=== PATIENT | female | born 1945 | race Caucasian/White ===

== ENCOUNTER 2020-12-27 13:47 | Emergency (ER) | payer MEDICARE, MEDICAID, SELFPAY ==
--- NOTE | ~2020-12-27 | CT_ITS ---
EXAMINATION: CT HEAD WITHOUT CONTRAST CLINICAL INFORMATION: Aggressive. Hallucinations. History of traumatic brain injury. COMPARISON: None. TECHNIQUE: Contiguous axial imaging was performed from the skull base to vertex without intravenous contrast. This CT examination was performed using dose optimization techniques as appropriate, variously including the following: * Automated exposure control * Adjustment of mA and/or kV according to patient size (this includes techniques or standardized protocols for targeted exams where dose is matched to indication/reason for exam; i.e. extremities or head) Use of iterative reconstruction technique DLP: 700 mGy-cm. FINDINGS: There is no evidence of acute intracranial hemorrhage or territorial infarction. No abnormal mass effect or midline shift is seen. [place] to white matter differentiation is well preserved. No extra-axial fluid collections are identified. No hydrocephalus. Proportional prominence of the ventricles and sulcal spaces is consistent with mild volume loss. Patchy periventricular and deep white matter hypoattenuation is consistent with mild small vessel ischemic changes. The osseous structures and soft tissues are normal. The mastoid air cells and visualized portions of the paranasal sinuses are well aerated. CT/CT head/brain wo con IMPRESSION: No acute intracranial pathology. Chronic volume loss with small vessel ischemic changes.
[2020-12-27 14:04] VITALS: BP 125/68; BP 125/70; PULSE 80; PULSE 92; RESP 18; TEMP 37.7; O2SAT 98; O2SAT 99; BMI 25.7
--- NOTE | 2020-12-27 14:37 | ECG_ITS ---
Test Reason : MED CLEARANCE Blood Pressure : / mmHG Vent. Rate : 078 BPM Atrial Rate : 078 BPM P-R Int : 146 ms QRS Dur : 098 ms QT Int : 362 ms P-R-T Axes : 072 067 026 degrees QTc Int : 412 ms Normal sinus rhythm Normal ECG No previous ECGs available Referred By: Juan Manuel Guerin Electronically Signed By:KORI MORALES
--- NOTE | 2020-12-27 14:43 | ED.GENADULT ---
HPI - General Adult General Chief complaint: Altered Mental Status <BHARAT Ortiz - Last Filed: 12/27/20 18:09> Stated complaint: behavioral <BHARAT Ortiz - Last Filed: 12/27/20 18:09> Time Seen by Provider: 12/27/20 14:21 <BHARAT Ortiz - Last Filed: 12/27/20 18:09> Source: patient <BHARAT Ortiz - Last Filed: 12/27/20 18:09> Mode of arrival: ambulatory <BHARAT Ortiz - Last Filed: 12/27/20 18:09> Limitations: no limitations <BHARAT Ortiz Last Filed: 12/27/20 18:09> History of Present Illness HPI narrative: Patient brought to the ED for increased aggression for 1 week as from as per shelter. Nurse states that patient has been increasingly aggressive and having violent hallucinations which causes her to act out in aggression. Nurse states patient admitted to seeing people in her room multiple times. At baseline patient has hallucinations but they are usually pleasant. She also states at baseline patient is alert oriented x3, but can also have mental status that wax and wanes. Patient herself admits to seeing somebody in her room last nigth but denies any violent acts. Patient presently is alert oriented x3. Patient knows her name, birthday, address, year, place, and the president. Patient presently in the ER is pleasant. Patient has history of bipolar, dementia, and traumatic brain injury <BHARAT Ortiz - Last Filed: 12/27/20 18:09> Related Data Home medications: Home Medications Medication Instructions Recorded Confirmed cholecalciferol (vitamin D3) 50 50 mcg PO DAILY 12/27/20 12/27/20 mcg (2,000 unit) tablet (Vitamin D3) cyanocobalamin (vitamin B-12) 500 500 mcg PO DAILY 12/27/20 12/27/20 mcg tablet (Vitamin B-12) estradiol 2 g VAGINAL 2XW 12/27/20 12/27/20 levothyroxine 50 mcg tablet 1 tab PO DAILY 12/27/20 12/27/20 lithium carbonate 450 mg 1 tab PO BEDTIME 12/27/20 12/27/20 tablet,extended release metoprolol succinate 25 mg 1 tab PO DAILY 12/27/20 12/27/20 tablet,extended release 24 hr mirtazapine 15 mg tablet 0.5 tab PO DAILY 12/27/20 12/27/20 quetiapine 300 mg tablet 1 tab PO BEDTIME 12/27/20 12/27/20 quetiapine 50 mg tablet 1 tab PO BEDTIME 12/27/20 12/27/20 <BHARAT Ortiz Last Filed: 12/27/20 18:09> Allergies/adverse reactions: Allergies Allergy/AdvReac Type Severity Reaction Status Date / Time acetaminophen [From Percocet] Allergy Unknown Verified 12/27/20 14:31 aripiprazole [From Abilify] Allergy Unknown Verified 12/27/20 14:32 aspirin Allergy Unknown Verified 12/27/20 14:31 diphenhydramine Allergy Unknown Verified 12/27/20 14:32 [From Benadryl] lamotrigine Allergy Unknown Verified 12/27/20 14:31 meperidine [From Demerol] Allergy Unknown Verified 12/27/20 14:32 oxycodone Allergy Unknown Verified 12/27/20 14:31 prednisone Allergy Unknown Verified 12/27/20 14:31 Sulfa (Sulfonamide Allergy Unknown Verified 12/27/20 14:31 Antibiotics) <BHARAT Ortiz Last Filed: 12/27/20 18:09> Review of Systems Review of Systems: Yes all other systems are reviewed and are negative <BHARAT Ortiz Last Filed: 12/27/20 18:09> Constitutional: Constitutional: Reports as per HPI and Reports no additional constitutional complaints <BHARAT Ortiz Last Filed: 12/27/20 18:09> Eyes: Eyes: Reports as per HPI and Reports no additional eye complaints <BHARAT Ortiz Last Filed: 12/27/20 18:09> ENT: Reports system reviewed and no additional complaints, except as documented and Reports as per HPI <BHARAT Ortiz Last Filed: 12/27/20 18:09> Cardiovascular: Cardiovascular: Reports as per HPI and Reports no additional cardiovascular complaints <BHARAT Ortiz Last Filed: 12/27/20 18:09> Respiratory: Respiratory: Reports as per HPI and Reports no additional respiratory complaints <BHARAT Ortiz Last Filed: 12/27/20 18:09> Gastrointestinal: Gastrointestinal: Reports as per HPI and Reports no additional gastrointestinal complaints <BHARAT Ortiz - Last Filed: 12/27/20 18:09> Genitourinary: Genitourinary: Reports no additional female genitourinary complaints and Reports as per HPI <BHARAT Oritz - Last Filed: 12/27/20 18:09> Musculoskeletal: Musculoskeletal: Reports no additional musculoskeletal complaints and Reports as per HPI <BHARAT Ortiz - Last Filed: 12/27/20 18:09> Neurologic: Reports system reviewed and no additional complaints, except as documented and Reports as per HPI <BHARAT Ortiz - Last Filed: 12/27/20 18:09> Psychiatric: Psychiatric: Reports no additional psychiatric complaints and Reports as per HPI <BHARAT Ortiz - Last Filed: 12/27/20 18:09> Comments: Aggression. Hallucination <BHARAT Ortiz - Last Filed: 12/27/20 18:09> [facility] Past Medical History Medical History: Medical History (Updated 12/27/20 @ 18:04 by BHARAT Ortiz) Bipolar 1 disorder Brain concussion Head injury Hypothyroid Melanoma Sciatica <BHARAT Ortiz - Last Filed: 12/27/20 18:09> Social History Social History: Social History Alcohol intake: unknown Patient Tobacco Use Status: Never used Tobacco Use of substances other than those prescribed or required for medical reasons: No Advance Directives: No <BHARAT Ortiz - Last Filed: 12/27/20 18:09> Physical Exam Vital Signs: Vital Signs: Last Vital Signs Temp 98.2 F 12/27/20 23:58 Pulse 76 12/27/20 23:58 Resp 16 12/27/20 23:58 BP 146/67 H 12/27/20 23:58 Pulse Ox 97 12/27/20 23:58 Body Mass Index 25.7 <BHARAT Ortiz - Last Filed: 12/27/20 18:09> Vital Signs: Last Vital Signs Temp 98.2 F 12/27/20 23:58 Pulse 76 12/27/20 23:58 Resp 16 12/27/20 23:58 BP 146/67 H 12/27/20 23:58 Pulse Ox 97 12/27/20 23:58 Body Mass Index 25.7 <Yashira Jackson [facility] Last Filed: 12/28/20 08:57> Const: General: cooperative, healthy appearing, comfortable, no acute distress, well developed, alert and awake <BHARAT Ortiz Last Filed: 12/27/20 18:09> Orientation/consciousness: patient oriented x3 <BHARAT Ortiz Last Filed: 12/27/20 18:09> HENMT: Head: Yes normal to inspection, Yes No palpable skull fracture present, Yes normocephalic and Yes atraumatic <BHARAT Ortiz Last Filed: 12/27/20 18:09> Eyes: General: appearance normal, both eyes and all related structures <BHARAT Ortiz Last Filed: 12/27/20 18:09> Neck: Neck: Yes normal visual inspection, Yes full ROM, Yes no lymphadenopathy, Yes no meningeal signs, Yes trachea midline, Yes supple and No tender <BHARAT Ortiz Last Filed: 12/27/20 18:09> Chest: Chest palpation & inspection: normal inspection of the chest and normal palpation of entire chest wall <BHARAT Ortiz Last Filed: 12/27/20 18:09> Resp: Effort & Inspection: normal respiratory effort and able to speak in complete sentences <BHARAT Ortiz Last Filed: 12/27/20 18:09> Auscultation: clear to auscultation bilaterally <BHARAT Ortiz Last Filed: 12/27/20 18:09> Cardio: Jugular venous distension: no JVD <BHARAT Ortiz Last Filed: 12/27/20 18:09> Heart sounds: S1 normal heart sound present and S2 normal heart sound present <BHARAT Ortiz Last Filed: 12/27/20 18:09> GI: Inspection: Yes normal to inspection and No abdominal wall ecchymosis <BHARAT Ortiz Last Filed: 12/27/20 18:09> Palpation (GI): Soft to palpation, not firm, nontender, no guarding and not rigid <BHARAT Ortiz Last Filed: 12/27/20 18:09> : General: No CVA tenderness and Yes no CVA tenderness <BHARAT Ortiz Last Filed: 12/27/20 18:09> Back/Spine/Pelvis: Back: no CVA tenderness, No CVA tenderness and No back tenderness <BHARAT Ortiz Last Filed: 12/27/20 18:09> Skin: General skin exam: no rashes or lesions noted and elasticity normal <BHARAT Ortiz Last Filed: 12/27/20 18:09> Neuro: Other: Negative for slurred speech. Negative for facial droop. All extremities equal strength 5+. [id number] and rapid hand movement intact. Negative pronator drift <BHARAT Ortiz Last Filed: 12/27/20 18:09> General: patient oriented x3, gait normal, tone normal, no meningeal signs and CN's II-XI intact bilaterally <BHARAT Ortiz Last Filed: 12/27/20 18:09> Cranial nerves: Yes CN's II-XII intact bilaterally <BHARAT Ortiz - Last Filed: 12/27/20 18:09> Extrem: General: Yes normal to inspection and Yes full ROM <BHARAT Ortiz Last Filed: 12/27/20 18:09> Psych: Appearance: grossly normal, well kempt and not disheveled <BHARAT Ortiz Last Filed: 12/27/20 18:09> Course Course Course Narrative: Patient presently alert oriented x3 and pleasant. Patient is not aggressive. [place] medical evaluation including head CT labs pneumonia. <BHARAT Ortiz Last Filed: 12/27/20 18:09> Reevaluation(s) Reevaluation #1: EKG normal sinus rhythm. UA and U tox came back normal for a: Negative. COVID swab is negative. Liver enzymes are normal. Kidney function normal. CBC normal. [place] slightly so subtherapeutic. Patient presents not hallucinating and is not altered. Patient alert oriented x3. Awaiting for her CT scan results. Case signed out to MICHAEL Anderson need to follow-up head CT scan. <BHARAT Ortiz Last Filed: 12/27/20 18:09> Time: 18:00 <BHARAT Ortiz Last Filed: 12/27/20 18:09> Medical Decision Making MDM Narrative Medical decision making narrative: TBI. Dementia <BHARAT Ortiz - Last Filed: 12/27/20 18:09> Lab Data Result diagrams: : 12/27/20 15:13 12/27/20 15:13 <BHARAT Ortiz - Last Filed: 12/27/20 18:09> Labs: Lab Results 12/27/20 12/27/20 12/27/20 Range/Units 15:03 15:12 15:13 WBC 6.4 (4.8-10.8) X10*3/uL RBC 3.32 L (4.20-5.50) X10*6/uL Hgb 9.9 L (12.0-16.0) g/dl Hct 31.2 L (37-47) % MCV 94.0 (80-98) fL MCH 29.8 (27.0-33.0) pg MCHC 31.7 (31.0-35.0) g/dl RDW 13.0 (11.0-16.0) % Plt Count 230 (160-400) X10*3/uL MPV 9.5 (9.4-12.3) fL Immature Gran % (Auto) 0.3 (0.0-0.4) % Neut % (Auto) 66.7 (45-73) % Lymph % (Auto) 23.3 (20-40) % [place] % (Auto) 5.9 (2-11) % Eos % (Auto) 3.3 (0-4) % Baso % (Auto) 0.5 (0-2) % Lymph # (Auto) 1.5 (1.2-4.9) X10*3/uL [place] # (Auto) 0.4 (0.1-1.2) X10*3/uL Eos # (Auto) 0.2 (0.0-0.4) X10*3/uL Baso # (Auto) 0.0 (0.0-0.2) X10*3/uL Abs Immat Gran (auto) 0.02 (0.00-0.03) X10*3/uL Absolute Neuts (auto) 4.3 (2.0-8.3) X10*3/uL Absolute Nucleated RBC 0.000 (0.0-0.012) X10*3/uL Nucleated RBC % (auto) 0.0 (0.0-0.2) /100WBC Sodium (135-145) mmol/L Potassium (3.3-5.1) mmol/L Chloride (96-108) mmol/L Carbon Dioxide (22-29) mmol/L Anion Gap (12-20) BUN (9-16) mg/dL Creatinine (0.5-1.4) mg/dL Estim Creat Clear Calc Estimated GFR Random Glucose (60-115) mg/dL Calcium (8.4-10.2) mg/dL Total Bilirubin (0.0-1.0) mg/dL Direct Bilirubin (0.0-0.5) mg/dL AST (5-31) U/L ALT (0-31) U/L Alkaline Phosphatase (39-117) U/L Ammonia 33 (13-55) umol/L Total Protein (6.5-8.0) g/dL Albumin (3.5-5.0) g/dL Urine Color Urine Appearance Urine pH (5.0-8.0) Ur Specific [place] (1.005-1.025) Urine Protein (NEG-TRACE) MG/DL Urine Glucose (UA) (NEG) MG/DL Urine Ketones (NEG) MG/DL Urine Blood (NEG) Urine Nitrite (NEG) Ur Leukocyte Esterase (NEG) Urine RBC (0) /HPF Urine WBC (0-4) /HPF Ur Squamous Epith Cells /LPF Urine Bacteria /LPF Urine Mucus /LPF Urine Opiates Screen (Not Detect) Urine Fentanyl Screen (Not Detect) Ur Barbiturates Screen (Not Detect) Ur Phencyclidine Scrn (Not Detect) Ur Amphetamines Screen (Not Detect) U Benzodiazepines Scrn (Not Detect) [place] (0.60-1.20) mmol/L Urine Cocaine Screen (Not Detect) U Marijuana (THC) Screen (Not Detect) Ethyl Alcohol mg/dL COVID-19 ([facility]) Negative (Negative) COVID-19 Clin Com See Note 12/27/20 12/27/20 12/27/20 Range/Units 15:13 15:13 15:13 WBC (4.8-10.8) X10*3/uL RBC (4.20-5.50) X10*6/uL Hgb (12.0-16.0) g/dl Hct (37-47) % MCV (80-98) fL MCH (27.0-33.0) pg MCHC (31.0-35.0) g/dl RDW (11.0-16.0) % Plt Count (160-400) X10*3/uL MPV (9.4-12.3) fL Immature Gran % (Auto) (0.0-0.4) % Neut % (Auto) (45-73) % Lymph % (Auto) (20-40) % [place] % (Auto) (2-11) % Eos % (Auto) (0-4) % Baso % (Auto) (0-2) % Lymph # (Auto) (1.2-4.9) X10*3/uL [place] # (Auto) (0.1-1.2) X10*3/uL Eos # (Auto) (0.0-0.4) X10*3/uL Baso # (Auto) (0.0-0.2) X10*3/uL Abs Immat Gran (auto) (0.00-0.03) X10*3/uL Absolute Neuts (auto) (2.0-8.3) X10*3/uL Absolute Nucleated RBC (0.0-0.012) X10*3/uL Nucleated RBC % (auto) (0.0-0.2) /100WBC Sodium 145 (135-145) mmol/L Potassium 4.4 (3.3-5.1) mmol/L Chloride 111 H (96-108) mmol/L Carbon Dioxide 29 (22-29) mmol/L Anion Gap 9 L (12-20) BUN 11 (9-16) mg/dL Creatinine 1.07 (0.5-1.4) mg/dL Estim Creat Clear Calc 42.0 Estimated GFR 50 Random Glucose 92 (60-115) mg/dL Calcium 9.5 (8.4-10.2) mg/dL Total Bilirubin 0.4 (0.0-1.0) mg/dL Direct Bilirubin < 0.2 (0.0-0.5) mg/dL AST 19 (5-31) U/L ALT 16 (0-31) U/L Alkaline Phosphatase 87 (39-117) U/L Ammonia (13-55) umol/L Total Protein 7.2 (6.5-8.0) g/dL Albumin 4.1 (3.5-5.0) g/dL Urine Color Urine Appearance Urine pH (5.0-8.0) Ur Specific [place] (1.005-1.025) Urine Protein (NEG-TRACE) MG/DL Urine Glucose (UA) (NEG) MG/DL Urine Ketones (NEG) MG/DL Urine Blood (NEG) Urine Nitrite (NEG) Ur Leukocyte Esterase (NEG) Urine RBC (0) /HPF Urine WBC (0-4) /HPF Ur Squamous Epith Cells /LPF Urine Bacteria /LPF Urine Mucus /LPF Urine Opiates Screen (Not Detect) Urine Fentanyl Screen (Not Detect) Ur Barbiturates Screen (Not Detect) Ur Phencyclidine Scrn (Not Detect) Ur Amphetamines Screen (Not Detect) U Benzodiazepines Scrn (Not Detect) [place] 0.42 L (0.60-1.20) mmol/L Urine Cocaine Screen (Not Detect) U Marijuana (THC) Screen (Not Detect) Ethyl Alcohol < 10 mg/dL COVID-19 ([facility]) (Negative) COVID-19 Clin Com 12/27/20 12/27/20 Range/Units 16:37 16:37 WBC (4.8-10.8) X10*3/uL RBC (4.20-5.50) X10*6/uL Hgb (12.0-16.0) g/dl Hct (37-47) % MCV (80-98) fL MCH (27.0-33.0) pg MCHC (31.0-35.0) g/dl RDW (11.0-16.0) % Plt Count (160-400) X10*3/uL MPV (9.4-12.3) fL Immature Gran % (Auto) (0.0-0.4) % Neut % (Auto) (45-73) % Lymph % (Auto) (20-40) % [place] % (Auto) (2-11) % Eos % (Auto) (0-4) % Baso % (Auto) (0-2) % Lymph # (Auto) (1.2-4.9) X10*3/uL [place] # (Auto) (0.1-1.2) X10*3/uL Eos # (Auto) (0.0-0.4) X10*3/uL Baso # (Auto) (0.0-0.2) X10*3/uL Abs Immat Gran (auto) (0.00-0.03) X10*3/uL Absolute Neuts (auto) (2.0-8.3) X10*3/uL Absolute Nucleated RBC (0.0-0.012) X10*3/uL Nucleated RBC % (auto) (0.0-0.2) /100WBC Sodium (135-145) mmol/L Potassium (3.3-5.1) mmol/L Chloride (96-108) mmol/L Carbon Dioxide (22-29) mmol/L Anion Gap (12-20) BUN (9-16) mg/dL Creatinine (0.5-1.4) mg/dL Estim Creat Clear Calc Estimated GFR Random Glucose (60-115) mg/dL Calcium (8.4-10.2) mg/dL Total Bilirubin (0.0-1.0) mg/dL Direct Bilirubin (0.0-0.5) mg/dL AST (5-31) U/L ALT (0-31) U/L Alkaline Phosphatase (39-117) U/L Ammonia (13-55) umol/L Total Protein (6.5-8.0) g/dL Albumin (3.5-5.0) g/dL Urine Color STRAW Urine Appearance CLEAR Urine pH 6.5 (5.0-8.0) Ur Specific [place] <= 1.005 (1.005-1.025) Urine Protein NEG (NEG-TRACE) MG/DL Urine Glucose (UA) NEG (NEG) MG/DL Urine Ketones NEG (NEG) MG/DL Urine Blood TRACE (NEG) Urine Nitrite NEG (NEG) Ur Leukocyte Esterase NEG (NEG) Urine RBC 1-4 (0) /HPF Urine WBC 0-2 (0-4) /HPF Ur Squamous Epith Cells TRACE /LPF Urine Bacteria TRACE /LPF Urine Mucus TRACE /LPF Urine Opiates Screen Not Detected (Not Detect) Urine Fentanyl Screen Not Detected (Not Detect) Ur Barbiturates Screen Not Detected (Not Detect) Ur Phencyclidine Scrn Not Detected (Not Detect) Ur Amphetamines Screen Not Detected (Not Detect) U Benzodiazepines Scrn Not Detected (Not Detect) [place] (0.60-1.20) mmol/L Urine Cocaine Screen Not Detected (Not Detect) U Marijuana (THC) Screen Not Detected (Not Detect) Ethyl Alcohol mg/dL COVID-19 ([facility]) (Negative) COVID-19 Clin Com <BHARAT Ortiz - Last Filed: 12/27/20 18:09> Lab Results 12/27/20 12/27/20 12/27/20 Range/Units 15:03 15:12 15:13 WBC 6.4 (4.8-10.8) X10*3/uL RBC 3.32 L (4.20-5.50) X10*6/uL Hgb 9.9 L (12.0-16.0) g/dl Hct 31.2 L (37-47) % MCV 94.0 (80-98) fL MCH 29.8 (27.0-33.0) pg MCHC 31.7 (31.0-35.0) g/dl RDW 13.0 (11.0-16.0) % Plt Count 230 (160-400) X10*3/uL MPV 9.5 (9.4-12.3) fL Immature Gran % (Auto) 0.3 (0.0-0.4) % Neut % (Auto) 66.7 (45-73) % Lymph % (Auto) 23.3 (20-40) % [place] % (Auto) 5.9 (2-11) % Eos % (Auto) 3.3 (0-4) % Baso % (Auto) 0.5 (0-2) % Lymph # (Auto) 1.5 (1.2-4.9) X10*3/uL [place] # (Auto) 0.4 (0.1-1.2) X10*3/uL Eos # (Auto) 0.2 (0.0-0.4) X10*3/uL Baso # (Auto) 0.0 (0.0-0.2) X10*3/uL Abs Immat Gran (auto) 0.02 (0.00-0.03) X10*3/uL Absolute Neuts (auto) 4.3 (2.0-8.3) X10*3/uL Absolute Nucleated RBC 0.000 (0.0-0.012) X10*3/uL Nucleated RBC % (auto) 0.0 (0.0-0.2) /100WBC Sodium (135-145) mmol/L Potassium (3.3-5.1) mmol/L Chloride (96-108) mmol/L Carbon Dioxide (22-29) mmol/L Anion Gap (12-20) BUN (9-16) mg/dL Creatinine (0.5-1.4) mg/dL Estim Creat Clear Calc Estimated GFR Random Glucose (60-115) mg/dL Calcium (8.4-10.2) mg/dL Total Bilirubin (0.0-1.0) mg/dL Direct Bilirubin (0.0-0.5) mg/dL AST (5-31) U/L ALT (0-31) U/L Alkaline Phosphatase (39-117) U/L Ammonia 33 (13-55) umol/L Total Protein (6.5-8.0) g/dL Albumin (3.5-5.0) g/dL Urine Color Urine Appearance Urine pH (5.0-8.0) Ur Specific [place] (1.005-1.025) Urine Protein (NEG-TRACE) MG/DL Urine Glucose (UA) (NEG) MG/DL Urine Ketones (NEG) MG/DL Urine Blood (NEG) Urine Nitrite (NEG) Ur Leukocyte Esterase (NEG) Urine RBC (0) /HPF Urine WBC (0-4) /HPF Ur Squamous Epith Cells /LPF Urine Bacteria /LPF Urine Mucus /LPF Urine Opiates Screen (Not Detect) Urine Fentanyl Screen (Not Detect) Ur Barbiturates Screen (Not Detect) Ur Phencyclidine Scrn (Not Detect) Ur Amphetamines Screen (Not Detect) U Benzodiazepines Scrn (Not Detect) [place] (0.60-1.20) mmol/L Urine Cocaine Screen (Not Detect) U Marijuana (THC) Screen (Not Detect) Ethyl Alcohol mg/dL COVID-19 ([facility]) Negative (Negative) COVID-19 Clin Com See Note 12/27/20 12/27/20 12/27/20 Range/Units 15:13 15:13 15:13 WBC (4.8-10.8) X10*3/uL RBC (4.20-5.50) X10*6/uL Hgb (12.0-16.0) g/dl Hct (37-47) % MCV (80-98) fL MCH (27.0-33.0) pg MCHC (31.0-35.0) g/dl RDW (11.0-16.0) % Plt Count (160-400) X10*3/uL MPV (9.4-12.3) fL Immature Gran % (Auto) (0.0-0.4) % Neut % (Auto) (45-73) % Lymph % (Auto) (20-40) % [place] % (Auto) (2-11) % Eos % (Auto) (0-4) % Baso % (Auto) (0-2) % Lymph # (Auto) (1.2-4.9) X10*3/uL [place] # (Auto) (0.1-1.2) X10*3/uL Eos # (Auto) (0.0-0.4) X10*3/uL Baso # (Auto) (0.0-0.2) X10*3/uL Abs Immat Gran (auto) (0.00-0.03) X10*3/uL Absolute Neuts (auto) (2.0-8.3) X10*3/uL Absolute Nucleated RBC (0.0-0.012) X10*3/uL Nucleated RBC % (auto) (0.0-0.2) /100WBC Sodium 145 (135-145) mmol/L Potassium 4.4 (3.3-5.1) mmol/L Chloride 111 H (96-108) mmol/L Carbon Dioxide 29 (22-29) mmol/L Anion Gap 9 L (12-20) BUN 11 (9-16) mg/dL Creatinine 1.07 (0.5-1.4) mg/dL Estim Creat Clear Calc 42.0 Estimated GFR 50 Random Glucose 92 (60-115) mg/dL Calcium 9.5 (8.4-10.2) mg/dL Total Bilirubin 0.4 (0.0-1.0) mg/dL Direct Bilirubin < 0.2 (0.0-0.5) mg/dL AST 19 (5-31) U/L ALT 16 (0-31) U/L Alkaline Phosphatase 87 (39-117) U/L Ammonia (13-55) umol/L Total Protein 7.2 (6.5-8.0) g/dL Albumin 4.1 (3.5-5.0) g/dL Urine Color Urine Appearance Urine pH (5.0-8.0) Ur Specific [place] (1.005-1.025) Urine Protein (NEG-TRACE) MG/DL Urine Glucose (UA) (NEG) MG/DL Urine Ketones (NEG) MG/DL Urine Blood (NEG) Urine Nitrite (NEG) Ur Leukocyte Esterase (NEG) Urine RBC (0) /HPF Urine WBC (0-4) /HPF Ur Squamous Epith Cells /LPF Urine Bacteria /LPF Urine Mucus /LPF Urine Opiates Screen (Not Detect) Urine Fentanyl Screen (Not Detect) Ur Barbiturates Screen (Not Detect) Ur Phencyclidine Scrn (Not Detect) Ur Amphetamines Screen (Not Detect) U Benzodiazepines Scrn (Not Detect) [place] 0.42 L (0.60-1.20) mmol/L Urine Cocaine Screen (Not Detect) U Marijuana (THC) Screen (Not Detect) Ethyl Alcohol < 10 mg/dL COVID-19 ([facility]) (Negative) COVID-19 Clin Com 12/27/20 12/27/20 Range/Units 16:37 16:37 WBC (4.8-10.8) X10*3/uL RBC (4.20-5.50) X10*6/uL Hgb (12.0-16.0) g/dl Hct (37-47) % MCV (80-98) fL MCH (27.0-33.0) pg MCHC (31.0-35.0) g/dl RDW (11.0-16.0) % Plt Count (160-400) X10*3/uL MPV (9.4-12.3) fL Immature Gran % (Auto) (0.0-0.4) % Neut % (Auto) (45-73) % Lymph % (Auto) (20-40) % [place] % (Auto) (2-11) % Eos % (Auto) (0-4) % Baso % (Auto) (0-2) % Lymph # (Auto) (1.2-4.9) X10*3/uL [place] # (Auto) (0.1-1.2) X10*3/uL Eos # (Auto) (0.0-0.4) X10*3/uL Baso # (Auto) (0.0-0.2) X10*3/uL Abs Immat Gran (auto) (0.00-0.03) X10*3/uL Absolute Neuts (auto) (2.0-8.3) X10*3/uL Absolute Nucleated RBC (0.0-0.012) X10*3/uL Nucleated RBC % (auto) (0.0-0.2) /100WBC Sodium (135-145) mmol/L Potassium (3.3-5.1) mmol/L Chloride (96-108) mmol/L Carbon Dioxide (22-29) mmol/L Anion Gap (12-20) BUN (9-16) mg/dL Creatinine (0.5-1.4) mg/dL Estim Creat Clear Calc Estimated GFR Random Glucose (60-115) mg/dL Calcium (8.4-10.2) mg/dL Total Bilirubin (0.0-1.0) mg/dL Direct Bilirubin (0.0-0.5) mg/dL AST (5-31) U/L ALT (0-31) U/L Alkaline Phosphatase (39-117) U/L Ammonia (13-55) umol/L Total Protein (6.5-8.0) g/dL Albumin (3.5-5.0) g/dL Urine Color STRAW Urine Appearance CLEAR Urine pH 6.5 (5.0-8.0) Ur Specific [place] <= 1.005 (1.005-1.025) Urine Protein NEG (NEG-TRACE) MG/DL Urine Glucose (UA) NEG (NEG) MG/DL Urine Ketones NEG (NEG) MG/DL Urine Blood TRACE (NEG) Urine Nitrite NEG (NEG) Ur Leukocyte Esterase NEG (NEG) Urine RBC 1-4 (0) /HPF Urine WBC 0-2 (0-4) /HPF Ur Squamous Epith Cells TRACE /LPF Urine Bacteria TRACE /LPF Urine Mucus TRACE /LPF Urine Opiates Screen Not Detected (Not Detect) Urine Fentanyl Screen Not Detected (Not Detect) Ur Barbiturates Screen Not Detected (Not Detect) Ur Phencyclidine Scrn Not Detected (Not Detect) Ur Amphetamines Screen Not Detected (Not Detect) U Benzodiazepines Scrn Not Detected (Not Detect) [place] (0.60-1.20) mmol/L Urine Cocaine Screen Not Detected (Not Detect) U Marijuana (THC) Screen Not Detected (Not Detect) Ethyl Alcohol mg/dL COVID-19 ([facility]) (Negative) COVID-19 Clin Com <BHARAT Montes - Last Filed: 12/28/20 08:57> ECG Data Interpretation: Normal sinus rhythm. Normal EKG. Ventricular rate 78. Pr interval 146. QRS 98. QTC 412. Negative STEMI <BHARAT Ortiz - Last Filed: 12/27/20 18:09> Discharge Plan Discharge Clinical Impression: Dementia, Cognitive deficit as late effect of traumatic brain injury <BHARAT Ortiz - Last Filed: 12/27/20 18:09> Prescriptions: No Action quetiapine 300 mg tablet 1 tab PO BEDTIME RF: 0 lithium carbonate 450 mg tablet extended release 1 tab PO BEDTIME RF: 0 cyanocobalamin (vitamin B-12) [Vitamin B-12] 500 mcg Tablet 500 mcg PO DAILY RF: 0 levothyroxine 50 mcg tablet 1 tab PO DAILY RF: 0 mirtazapine 15 mg tablet 0.5 tab PO DAILY RF: 0 metoprolol succinate 25 mg tablet extended release 24 hr 1 tab PO DAILY RF: 0 estradiol 0.01 % (0.1 mg/gram) cream 2 g vaginal 2XW RF: 0 quetiapine 50 mg tablet 1 tab PO BEDTIME RF: 0 cholecalciferol (vitamin D3) [Vitamin D3] 50 mcg (2,000 unit) Tablet 50 mcg PO DAILY RF: 0 <BHARAT Ortiz - Last Filed: 12/27/20 18:09>
[2020-12-27 15:20] LABS: MANUAL DIFF FLAG NO
[2020-12-27 15:25] LABS: Basophils Percent Auto 0.5 % (0-2); Eosinophils Absolute Auto 0.2 X10*3/uL (0.0-0.4); Eosinophils Percent Auto 3.3 % (0-4); Hematocrit 31.2 % (37-47); Hemoglobin 9.9 g/dl (12.0-16.0); Imm Gran Abs Auto 0.02 X10*3/uL (0.00-0.03); Imm Gran Pct Auto 0.3 % (0.0-0.4); Lymphocytes Absolute Auto 1.5 X10*3/uL (1.2-4.9); Lymphocytes Percent Auto 23.3 % (20-40); Mean Corpuscular HGB Conc 31.7 g/dl (31.0-35.0); Mean Corpuscular Hemoglobin 29.8 pg (27.0-33.0); Mean Platelet Volume 9.5 fL (9.4-12.3); Monocytes Absolute Auto 0.4 X10*3/uL (0.1-1.2); Monocytes Percent Auto 5.9 % (2-11); Neutrophils Absolute Auto 4.3 X10*3/uL (2.0-8.3); Neutrophils Percent Auto 66.7 % (45-73); Platelet Count 230 X10*3/uL (160-400); Red Blood Count 3.32 X10*6/uL (4.20-5.50); White Blood Count 6.4 X10*3/uL (4.8-10.8)
[2020-12-27 15:34] LABS: Ammonia 33 umol/L (13-55)
[2020-12-27 15:35] LABS: Lithium 0.42 mmol/L (0.60-1.20)
[2020-12-27 15:39] LABS: COVID-19 Test Negative (Negative); IDNOW Serial# 08D9AD1C
[2020-12-27 15:41] LABS: Ethanol < 10 mg/dL
[2020-12-27 15:46] LABS: Alanine Aminotransferase 16 U/L (0-31); Albumin Level 4.1 g/dL (3.5-5.0); Alkaline Phosphatase 87 U/L (39-117); Anion Gap 9 (12-20); Aspartate Amino Transferase 19 U/L (5-31); Bilirubin Direct < 0.2 mg/dL (0.0-0.5); Bilirubin Total 0.4 mg/dL (0.0-1.0); Blood Urea Nitrogen 11 mg/dL (9-16); Calcium 9.5 mg/dL (8.4-10.2); Carbon Dioxide 29 mmol/L (22-29); Chloride 111 mmol/L (96-108); Estimated Glomerular Filt Rate 50; Glucose Random 92 mg/dL (60-115); Potassium 4.4 mmol/L (3.3-5.1); Sodium 145 mmol/L (135-145); Total Protein 7.2 g/dL (6.5-8.0)
--- NOTE | 2020-12-27 16:02 | PC.NURSE ---
update nilsa Kaplan on telephone.
[2020-12-27 16:44] LABS: Appearance Urine CLEAR; Color Urine STRAW; Glucose Urine UA NEG (NEG); Leukocyte Esterase Urine NEG (NEG); Nitrite Urine NEG (NEG); PH 6.5 (5.0-8.0); Specific Gravity - Urine <= 1.005 (1.005-1.025); UACC Culture Trigger NO; Urine Blood TRACE (NEG); Urine Ketones NEG (NEG); Urine Protein NEG (NEG-TRACE)
[2020-12-27 16:55] LABS: Bacteria Urine TRACE /LPF; Mucus Urine TRACE /LPF; Squamous Epithelial Cell Urine TRACE /LPF; WBC Urine 0-2 /HPF (0-4)
[2020-12-27 17:03] LABS: Amphetamine Screen Urine Not Detected (Not Detect); Barbiturates, Urine Not Detected (Not Detect); Benzodiazepines Screen Urine Not Detected (Not Detect); Cannabinoid Screen Urine Not Detected (Not Detect); Cocaine Screen Urine Not Detected (Not Detect); Fentanyl, urine Not Detected (Not Detect); Opiate Screen Urine Not Detected (Not Detect); Phencyclidine Screen Urine Not Detected (Not Detect)
--- NOTE | 2020-12-27 17:16 | PC.NURSE ---
Son states pt is on a locked dementia unit but is still assisted living.
[2020-12-27 17:35] VITALS: BP 142/67; PULSE 83; TEMP 37.1; O2SAT 95
[2020-12-27 17:53] VITALS: BP 142/67; PULSE 83
[2020-12-27] MEDS: Cholecalciferol (Vitamin D3) 25 MCG TABLET 50 MCG PO (17:53)
[2020-12-27] MEDS: Metoprolol Succinate ER 25 MG TAB.ER.24H PO (17:53)
[2020-12-27] MEDS: Levothyroxine Sodium 50 MCG TABLET PO (17:53)
[2020-12-27] MEDS: Mirtazapine 7.5 MG TABLET PO (17:53)
[2020-12-27] MEDS: Cyanocobalamin (Vitamin B-12) 500 MCG TABLET PO ×2 (18:00→20:18)
--- NOTE | 2020-12-27 18:12 | PC.NURSE ---
Pt up eating dinner. Denies that she's had any hallucinations. Behavior has been calm and no indication for internal stimuli.
--- NOTE | 2020-12-27 20:11 | PM.PSYCN ---
History of Present Illness Date of Service: 12/27/20 Chief Complaint: behavioral Reason for Consult: medication Requesting physician: Juan Manuel Guerin Discussed with referring provider: Yes Sources of Information: patient interviewed, chart reviewed and crisis/core team assessment reviewed HPI Narrative: 75 y.o. Female who carries a dx of dementia, bipolar DO, and TBI. She presented to [facility] from her SNF ([facility]) on 12/27/20 due to increased aggression for 1 week. Per RN from her care home, Roseline stated she has VH of people in her room. At baseline, she has hallucinations but she denies that they bother her and state they are pleasant. She is alert and oriented x 4. Utox is negative, UA is wnl, no alcohol use. [place] level is 0.42. Head CT showed no acute intracranial pathology. EKG wnl, QTc 412. Renal labs wnl. Current med regimen: lithium 450 QHS, seroquel 350 mg QHS, remeron 7.5 mg QHS. Consult requested for med eval. I evaluated the patient this evening and upon inquiry she reports ?im doing fine.? Says she is in the hospital because her son and counselor ?say im not myself.? She reports she is med adherent, has meds administered by RN at care home. Says her sleep has been ?terrible? because her roommate in the home is ?always getting up and turning on the light.? Says her seroquel will let her sleep 3-4 hours and then she is up. Denies feeling tired in the day. Also says ?I never slept good.? She endorses AH and VH but denies that they bother her. Denies anxiety. Denies aggression, says she gets along with people. Denies depression. Says she feels safe to return to her care home, does not endorse SI/SIB/HI upon inquiry today. Denies having questions or concerns.? I discussed the case with Roseline? med prescriber, Rose Hernandez, reports she recently visited her son and stayed overnight and did not get her lithium dose while with him. Says her lithium level is normally higher and recommends increasing the dose to target mood lability/ aggressive behaviors at the care home. Rose agrees she does not meet criteria for IPLOC.? Medical Evaluation Reviewed: Yes [facility] Medical History (Updated 01/02/21 @ 14:33 by Michelle Matute NP) Bipolar 1 disorder Brain concussion Head injury Hypothyroid Melanoma Sciatica Diagnostics Vital Signs (24Hr): Vital Signs - 24 hr 12/27/20 14:04 12/27/20 17:35 12/27/20 17:53 Temperature 99.9 F 98.8 F Pulse Rate 92 83 83 Respiratory Rate 18 Blood Pressure 125/68 142/67 H 142/67 H Pulse Oximetry 98 95 Body Mass Index 25.7 Labs Results: 12/27/20 15:13 12/27/20 15:13 Labs: Laboratory Results - last 48 hr 12/27/20 12/27/20 12/27/20 15:03 15:12 15:13 WBC 6.4 RBC 3.32 L Hgb 9.9 L Hct 31.2 L MCV 94.0 MCH 29.8 MCHC 31.7 RDW 13.0 Plt Count 230 MPV 9.5 Immature Gran % (Auto) 0.3 Neut % (Auto) 66.7 Lymph % (Auto) 23.3 Park % (Auto) 5.9 Eos % (Auto) 3.3 Baso % (Auto) 0.5 Lymph # (Auto) 1.5 Park # (Auto) 0.4 Eos # (Auto) 0.2 Baso # (Auto) 0.0 Abs Immat Gran (auto) 0.02 Absolute Neuts (auto) 4.3 Absolute Nucleated RBC 0.000 Nucleated RBC % (auto) 0.0 Sodium Potassium Chloride Carbon Dioxide Anion Gap BUN Creatinine Estim Creat Clear Calc Estimated GFR Random Glucose Calcium Total Bilirubin Direct Bilirubin AST ALT Alkaline Phosphatase Ammonia 33 Total Protein Albumin Urine Color Urine Appearance Urine pH Ur Specific [place] Urine Protein Urine Glucose (UA) Urine Ketones Urine Blood Urine Nitrite Ur Leukocyte Esterase Urine RBC Urine WBC Ur Squamous Epith Cells Urine Bacteria Urine Mucus Urine Opiates Screen Urine Fentanyl Screen Ur Barbiturates Screen Ur Phencyclidine Scrn Ur Amphetamines Screen U Benzodiazepines Scrn [place] Urine Cocaine Screen U Marijuana (THC) Screen Ethyl Alcohol COVID-19 (MARVA) Negative COVID-19 Clin Com See Note 12/27/20 12/27/20 12/27/20 15:13 15:13 15:13 WBC RBC Hgb Hct MCV MCH MCHC RDW Plt Count MPV Immature Gran % (Auto) Neut % (Auto) Lymph % (Auto) Park % (Auto) Eos % (Auto) Baso % (Auto) Lymph # (Auto) [place] # (Auto) Eos # (Auto) Baso # (Auto) Abs Immat Gran (auto) Absolute Neuts (auto) Absolute Nucleated RBC Nucleated RBC % (auto) Sodium 145 Potassium 4.4 Chloride 111 H Carbon Dioxide 29 Anion Gap 9 L BUN 11 Creatinine 1.07 Estim Creat Clear Calc 42.0 Estimated GFR 50 Random Glucose 92 Calcium 9.5 Total Bilirubin 0.4 Direct Bilirubin < 0.2 AST 19 ALT 16 Alkaline Phosphatase 87 Ammonia Total Protein 7.2 Albumin 4.1 Urine Color Urine Appearance Urine pH Ur Specific [place] Urine Protein Urine Glucose (UA) Urine Ketones Urine Blood Urine Nitrite Ur Leukocyte Esterase Urine RBC Urine WBC Ur Squamous Epith Cells Urine Bacteria Urine Mucus Urine Opiates Screen Urine Fentanyl Screen Ur Barbiturates Screen Ur Phencyclidine Scrn Ur Amphetamines Screen U Benzodiazepines Scrn [place] 0.42 L Urine Cocaine Screen U Marijuana (THC) Screen Ethyl Alcohol < 10 COVID-19 (MARVA) COVID-19 [employer] 12/27/20 12/27/20 16:37 16:37 WBC RBC Hgb Hct MCV MCH MCHC RDW Plt Count MPV Immature Gran % (Auto) Neut % (Auto) Lymph % (Auto) Park % (Auto) Eos % (Auto) Baso % (Auto) Lymph # (Auto) [place] # (Auto) Eos # (Auto) Baso # (Auto) Abs Immat Gran (auto) Absolute Neuts (auto) Absolute Nucleated RBC Nucleated RBC % (auto) Sodium Potassium Chloride Carbon Dioxide Anion Gap BUN Creatinine Estim Creat Clear Calc Estimated GFR Random Glucose Calcium Total Bilirubin Direct Bilirubin AST ALT Alkaline Phosphatase Ammonia Total Protein Albumin Urine Color STRAW Urine Appearance CLEAR Urine pH 6.5 Ur Specific [place] <= 1.005 Urine Protein NEG Urine Glucose (UA) NEG Urine Ketones NEG Urine Blood TRACE Urine Nitrite NEG Ur Leukocyte Esterase NEG Urine RBC 1-4 Urine WBC 0-2 Ur Squamous Epith Cells TRACE Urine Bacteria TRACE Urine Mucus TRACE Urine Opiates Screen Not Detected Urine Fentanyl Screen Not Detected Ur Barbiturates Screen Not Detected Ur Phencyclidine Scrn Not Detected Ur Amphetamines Screen Not Detected U Benzodiazepines Scrn Not Detected [place] Urine Cocaine Screen Not Detected U Marijuana (THC) Screen Not Detected Ethyl Alcohol COVID-19 ([facility]) COVID-19 [facility] Com Imaging Radiology Impressions: ITS Impressions Head CT 12/27/20 14:37 IMPRESSION: No acute intracranial pathology. Chronic volume loss with small vessel ischemic changes. Mental Status Exam Mental Status Exam Narrative: A&O. In hospital attire, somewhat unkempt, normal body habitus. Good eye contact, inattentive. No Tics or Tremors. No abnormal involuntary movements. Calm, cooperative, engaged. Non-pressured speech, spontaneous with regular rate and rhythm, normal volume and prosody. No prolonged speech latency or dysarthria. Mood is ?fine,? affect is euthymic. Denies SI/SIB/HI upon inquiry. Endorses A/VH. Denies delusional thought content. Thoughts are disorganized and tangential in context of dementia. Insight/ Judgment limited but adequate. Medications Medications Current Medications Generic Name Dose Route Start Last Admin Trade Name Freq PRN Reason Stop Dose Admin Cyanocobalamin 500 mcg 12/27/20 17:00 12/27/20 18:00 Cyanocobalamin (Vitamin B-12) 500 Mcg Tablet PO 500 mcg DAILY JHONATAN Administration Levothyroxine Sodium 50 mcg 12/27/20 17:00 12/27/20 17:53 Levothyroxine Sodium 50 Mcg Tablet PO 50 mcg DAILY@0600 JHONATAN Administration [place] Carbonate 450 mg 12/27/20 21:00 [place] Carbonate Er 450 Mg Tablet.Er PO BEDTIME JHONATAN Metoprolol Succinate 25 mg 12/27/20 17:00 12/27/20 17:53 Metoprolol Succinate Er 25 Mg Tab.Er.24h PO 25 mg DAILY JHONATAN Administration Protocol Mirtazapine 7.5 mg 12/27/20 17:00 12/27/20 17:53 Mirtazapine 7.5 Mg Tablet PO 7.5 mg DAILY JHONATAN Administration Non-Formulary Medication 2 gm 12/27/20 17:00 Estradiol VAGINAL 2XW JHONATAN Quetiapine Fumarate 50 mg 12/27/20 21:00 Quetiapine Fumarate 50 Mg Tablet PO BEDTIME JHONATAN Quetiapine Fumarate 300 mg 12/27/20 21:00 Quetiapine Fumarate 300 Mg Tablet PO BEDTIME JHONATAN Vitamin D 50 mcg 12/27/20 17:00 12/27/20 17:53 Cholecalciferol (Vitamin D3) 25 Mcg Tablet PO 50 mcg DAILY JHONATAN Administration Allergies Allergies Allergy/AdvReac Type Severity Reaction Status Date / Time acetaminophen [From Percocet] Allergy Unknown Verified 12/27/20 14:31 aripiprazole [From Abilify] Allergy Unknown Verified 12/27/20 14:32 aspirin Allergy Unknown Verified 12/27/20 14:31 diphenhydramine Allergy Unknown Verified 12/27/20 14:32 [From Benadryl] lamotrigine Allergy Unknown Verified 12/27/20 14:31 meperidine [From Demerol] Allergy Unknown Verified 12/27/20 14:32 oxycodone Allergy Unknown Verified 12/27/20 14:31 prednisone Allergy Unknown Verified 12/27/20 14:31 Sulfa (Sulfonamide Allergy Unknown Verified 12/27/20 14:31 Antibiotics) Assessment & Plan Assessment & Plan (1) Bipolar 1 disorder: Status: Acute Code(s): F31.9 - Bipolar disorder, unspecified Assessment and Plan: Plan: Increase lithium to 600 mg QHS and OP prescriber will re-check level. Will start melatonin 3 mg QHS for sleep maintenance. Reviewed plan with OP prescriber. -Continue monitoring medically. Patient is currently medically cleared. -Patient can leave when she is ready for discharge -Reviewed with Care Team and collateral contacts ? Greater than 50% of the session was spent on counseling and/or coordination of care
[2020-12-27] MEDS: QUEtiapine Fumarate 300 MG TABLET PO (20:18)
[2020-12-27] MEDS: QUEtiapine Fumarate 50 MG TABLET PO (20:18)
[2020-12-27] MEDS: Lithium Carbonate ER 450 MG TABLET.ER PO (20:19)
[2020-12-27] MEDS: Lithium Carbonate 300 MG TABLET 150 MG PO (22:11)
[2020-12-27] MEDS: Melatonin 3 MG TABLET PO (22:12)
[2020-12-27 23:58] VITALS: BP 146/67; PULSE 76; RESP 16; TEMP 36.8; O2SAT 97
--- NOTE | 2020-12-28 00:27 | MHC.CARE ---
Pt presented to [facility] by EMS secondary to an increase in verbal aggression, agitation and hallucinations. Pt has a hx of dementia and bipolar d/o. Michelle Nair, SCHOOL MANAGER and T/W met with pt. Pt appeared linear, organized pt was able to tell us what her medications are, when she takes them, she is oriented X3, she discusses being upset at staff whispering at her assisted living facility. She explains that there was a tiger in her room, but he was very nice . Pt is calm and cooperative, has been in behavioral control throughout time in the ED. She reports poor sleep, and reports she has been medication compliant. Pt has been at her assisted living facility ([facility]) for 3-4 years. Pt's son Eusebio [phone], reports that pt experiences hallucinations at baseline, however recently pt's hallucinations have been more disruptive and becomes agitated when responding to internal stimuli which is not baseline behavior. Pt's son also confirms that she doesn't sleep. He shares that he went to visit her yesterday and she was story after story, off the wall . T/w spoke to Bassam, director/dementia practitioner [phone]- she reports pt has been up at night, arguing with her voices/having lengthy conversations. She reports pt believes her aids are in her closet all night and has been going in other residents rooms. Pt is reportedly worsening and they do not know of any known trigger as she reports nothing has changed, there is no progression it was just sudden . T/w spoke with Rose Vásquez medication provider [phone], Rose asked about pt's lab results and reports she suggested the facility send here therfore they can check her UA and sodium levels. Rose was on board with marianna and requested we call [facility] tomorrow to coordinate a time for her arrival. Rose is agreeable and states pt's [place] level is low than typical and believes this is the reason for her behaviors. Rose requests provider JORDIN adds a small dose of lithium to assist pt. JORDIN is agreeable and she spoke to Rose about doing this and sending pt back to facility tomorrow. Pt's son was updated of above plan. Pt will remain in the ED until tomorrow, staff will monitor and CARE team will contact [facility] tomorrow to determine a time that pt can return back to the facility. Please update son tomorrow if anything changes, Pt was cleared by psych and CARE and this was communicated to provider Rose who supports her going back.
[2020-12-28] MEDS: Levothyroxine Sodium 50 MCG TABLET PO (06:41)
--- NOTE | 2020-12-28 06:43 | PC.NURSE ---
Patient slept through the night, no distress observed/reported, behavior calm and quiet, medication compliant, elimination intact, disposition d/c back to [facility] today, will continue to monitor
--- NOTE | 2020-12-28 07:46 | PC.NURSE ---
patient appears in no distress at present asked appropriate questions after awakening, appears in no distress
[2020-12-28] MEDS: Mirtazapine 7.5 MG TABLET PO (09:19)
[2020-12-28] MEDS: Cholecalciferol (Vitamin D3) 25 MCG TABLET 50 MCG PO (09:19)
[2020-12-28 09:21] VITALS: BP 141/83; PULSE 77
[2020-12-28] MEDS: Metoprolol Succinate ER 25 MG TAB.ER.24H PO (09:21)
[2020-12-28 09:27] VITALS: BP 141/83; PULSE 77; RESP 16; TEMP 36.8; O2SAT 98
--- NOTE | 2020-12-28 10:43 | MHC.CR.ITR ---
Cll returned from [facility], stating that Roseline could return today at anytime. CM was informed and transportation will be arranged after lunch.
--- NOTE | 2020-12-28 10:47 | MHC.CARE ---
Returned call received from Viral at [facility] stating that she was able to return at any time today. CM was notified and transportation will be provided after lunch.
--- NOTE | 2020-12-28 14:03 | MHC.CARE ---
12:45 Call from patient's son Eusebio who was questioning disposition to discharge his mother, wanted to know if she received the additional dose of Retsof, if her prescriber was consulted and how she has been behaving. Patient did have an extra 150mg dose of Retsof last evening, her prescriber was consulted, she had made the medication recommendation and was in agreement with plan for patient returning to facility. She has been calm and cooperative while here without behavioral outbursts. Son of patient stated he was concerned about her delusions becoming more complex and intense and also her agitation. He speculated that patient being in her room without her usual roommate (who is at rehab) could have been enough of a change in routine to be destabilizing. Said his mother hates the unit because she has lost all of her freedom and watches or residents come and go from her window. In addition patient's son was worried that she may act out again or get worse. Validated his concerns, provided supportive listening, explained this may be a new baseline for his mother and delusions without erratic behavior are not a crisis and the facility will bring her back if she is not able to be safe. He verbalized understanding and agreement with plan of care.
== END 2020-12-28 13:39 ==
PROVIDERS: Physician Assistant; Emergency Provider Emergency Medicine; PCP Internal Medicine
DX: F03.90 Unspecified dementia, unspecified severity, without behavioral disturbance, psychotic disturbance, mood disturbance, and anxiety (principal); R41.82 Altered mental status, unspecified; Z87.820 Personal history of traumatic brain injury; Z79.899 Other long term (current) drug therapy; Z20.822 Contact with and (suspected) exposure to COVID-19
CPT/HCPCS: 36415; 70450; 80053; 80178; 80307; 81001; 82077; 82140; 82248; 85025; 87635; 93005; 99284